=== PATIENT | female | born 1990 | race African-American/Black ===

== ENCOUNTER → 2023-05-17 | Outpatient (CLI) | payer MEDICAID ==
[~2023-05-17] MED LIST: IBU600 MG PO; NATURAL IRON65 MG; PRENATAL TABLET PO
== END ==
LOC: MC.RAD 10:55
DX: N63.21 Unspecified lump in the left breast, upper outer quadrant (principal)

== ENCOUNTER → 2023-05-23 | Outpatient (CLI) | payer MEDICAID | LOC: MC.RAD 08:23 | DX: N64.89 Other specified disorders of breast (principal) ==